=== PATIENT | male | born 1990 | race Caucasian/White ===

== ENCOUNTER → 2018-03-26 | Outpatient (CLI) | payer OTHER | LOC: RAD 14:15 | DX: S93.432A Sprain of tibiofibular ligament of left ankle, initial encounter (principal) ==

== ENCOUNTER → 2020-10-29 | Outpatient (CLI) | payer OTHER | LOC: LAB 09:53 | DX: Z20.822 Contact with and (suspected) exposure to COVID-19 (principal) ==

== ENCOUNTER 2021-10-05 17:08 | Emergency (ER) | payer OTHER ==
[~2021-10-05] VITALS: Ht 180.3 cm; Wt 88.6 kg
[2021-10-05 18:04] LABS: BASO # 0.01 K/mm3 (0.02-0.10); EOS # 0.11 K/mm3 (0.04-0.40); EOS % 2.7 % (0.0-4.0); HEMOGLOBIN 15.9 g/dL (13.5-18.0); LYMPH# 1.52 K/mm3 (1.50-4.00); MEAN CELL VOLUME 91 fl (78-100); MEAN CORPUSCULAR HEMOGLOBIN 31 pg (27-31); MEAN CORPUSCULAR HGB CONC 34 g/dL (33-37); MEAN PLATELET VOLUME 9.7 fl (7.4-10.4); MONO # 0.32 K/mm3 (0.20-0.80); NEU # 2.13 K/mm3 (1.40-6.50); PLATELET COUNT 249 K/mm3 (130-400); RED BLOOD COUNT 5.18 M/mm3 (4.20-5.60); RED CELL DISTRIBUTION WIDTH 11.8 % (11.5-14.5); WHITE BLOOD COUNT 4.1 K/mm3 (4.8-10.8)
[2021-10-05 18:17] LABS: ALBUMIN 4.4 g/dL (3.5-5.0)
[2021-10-05 18:18] LABS: CALCIUM 9.3 mg/dL (8.3-10.5)
[2021-10-05 18:20] LABS: TOTAL PROTEIN 7.7 g/dL (6.4-8.3)
[2021-10-05 18:21] LABS: TOTAL BILIRUBIN 0.6 mg/dL (0.2-1.2)
[2021-10-05 18:57] LABS: URINE APPEARANCE CLEAR; URINE COLOR YELLOW
[2021-10-05 18:58] LABS: URINE BILIRUBIN NEGATIVE (NEGATIVE); URINE BLOOD NEGATIVE (NEGATIVE); URINE GLUCOSE NEGATIVE (NEGATIVE); URINE KETONE NEGATIVE (NEGATIVE); URINE LEUKOCYTE ESTERASE NEGATIVE (NEGATIVE); URINE MUCUS PRESENT (NOT PRESENT); URINE NITRATE NEGATIVE (NEGATIVE); URINE PROTEIN(semi-quant) TRACE (NEGATIVE); URINE UROBILINOGEN NORMAL (NORMAL); URINE WBC 0-1 /hpf (0-3)
[2021-10-05 19:31] VITALS: BP 118/86
== END 2021-10-05 19:31 | disposition home or self-care (01) ==
LOC: ED 17:08
PROVIDERS: Physician Assistant
DX: R10.11 Right upper quadrant pain (principal); U07.1 COVID-19; D72.819 Decreased white blood cell count, unspecified

== ENCOUNTER → 2022-06-29 | Outpatient (CLI) | payer OTHER | LOC: RAD 15:14 | DX: J18.1 Lobar pneumonia, unspecified organism (principal) ==

== ENCOUNTER → 2024-06-11 | Outpatient (CLI) | payer OTHER | LOC: RAD 07:20 | DX: M51.16 Intervertebral disc disorders with radiculopathy, lumbar region (principal) ==